=== PATIENT | female | born 1990 ===

== ENCOUNTER 2017-08-04 02:36 | Emergency (ER) | payer OTHER ==
[~2017-08-04] VITALS: Ht 170.2 cm; Wt 81.6 kg
[~2017-08-04 02:36] MED LIST: DOXYCYCLINE HY100 MG PO; MOTRIN800 MG PO; TUSSI PRES-B L120 M1 PO; ZITHROMAX TRI-500 MG PO
[2017-08-04] MEDS ORDERED: KETO10TA2 PO (05:07)
[2017-08-04] MEDS ORDERED: ORPHENADRINE C100 MG PO (05:07)
[2017-08-04] MEDS ORDERED: CYCLOBENZAPRINE10 MG PO (05:07)
== END 2017-08-04 12:38 | disposition home or self-care (01) ==
LOC: ER 02:36
DX: M94.0 Chondrocostal junction syndrome [Tietze] (principal)